=== PATIENT | male | born 1960 | race Caucasian/White ===

== ENCOUNTER 2018-02-03 21:30 | Inpatient (IN) ==
[2018-02-03 23:33] LABS: Basophils # 0.1 10*3/uL (0.0-0.2); Basophils % 0.5 % (0.0-0.8); Eosinophils # 0.1 10*3/uL (0.0-0.87); Eosinophils % 0.5 % (0.00-10.9); Hematocrit 44.9 VOL% (42.0-52.0); Hemoglobin 16.2 GM/DL (14.0-18.0); Immature Granulocytes % 0.6 %; Immature Granulocytes Absolute 0.08 #; Lymphocytes # 1.3 10*3/uL (1.4-4.0); Lymphocytes % 9.8 % (21.2-54.2); Mean Corpuscular HGB Conc 36.1 GM/DL (32-36); Mean Corpuscular Hemoglobin 33 PG (27-34); Mean Corpuscular Volume 90.2 FL (87-102); Mean Platelet Volume 10.1 FL (9.6-12.0); Monocytes # 1.8 10*3/uL (0.11-0.8); Monocytes % 14.1 % (1.7-12.7); Neutrophils # 9.7 10*3/uL (1.4-7.4); Neutrophils % 74.5 % (38.7-73.9); Platelet Count 319 T/CUMM (130-400); Red Blood Count 4.98 MC/CUMM (3.8-5.5); Red Cell Distribution Width 12.5 % (9.3-17.3)
[2018-02-03 23:56] LABS: Lactic Acid 1.8 MMOL/L (0.4-2.0)
[2018-02-03] MEDS ORDERED: ONDANSETRON 4 MG/2 ML VIAL IV STA (23:57)
[2018-02-03] MEDS ORDERED: MORPHINE 4 MG/1 ML VIAL IV STA (23:57)
[2018-02-03 23:58] LABS: Bilirubin,Total 1.1 MG/DL (0.2-1.0); Calcium 9.6 MG/DL (8.5-10.1); Osmolality,Calculated 271.5 MOS/KG (273-304); Potassium 3.1 MMOL/L (3.5-5.1); Total Protein 7.6 G/DL (6.4-8.3)
[2018-02-04] MEDS ORDERED: ONDANSETRON 4 MG/2 ML VIAL IV PRN ×2 (00:16→12:02)
[2018-02-04] MEDS ORDERED: MORPHINE 4 MG/1 ML VIAL IV PRN (00:21)
[2018-02-04 00:52] LABS: Apearance,Urine CLEAR (Clear); Bilirubin,Urine Negative (Negative); Blood, Urine Small mg/dL (Negative); Glucose,Urine (UA) Negative (Negative); Hyaline Casts,Urine 15 /LPF (0-3); Ketones,Urine 5 mg/dL (Negative); Mucus,Urine Few /LPF (Occasional); Nitrite,Urine Negative (Negative); Protein,Urine 30 MG/DL; RBC,Urine 2 /HPF (0-4); Urine Color Yellow (Yellow); Urine Urobilinogen < 2.0 EU/DL (0.2-1.0); WBC,Urine 1 /HPF (0-6)
[2018-02-04] MEDS: DEXTROSE 5% LACTATED RINGERS 1,000 ML IV SCH ×4 (02:54→18:35)
[2018-02-04] MEDS: POTASSIUM CHLORIDE RIDER 10 MEQ in PREMIX 1 EACH IV SCH ×5 (08:25→16:52)
[2018-02-04] MEDS: ENOXAPARIN 40 MG/0.4 ML SYRINGE SUBCUT SCH (08:38)
[2018-02-04] MEDS ORDERED: ALBUTEROL 2.5 MG/3 ML NEB RESP TX ONE (08:47)
[2018-02-04] MEDS ORDERED: IPRATROPIUM 500 MCG/2.5 ML NEB RESP TX ONE (08:47)
[2018-02-04] MEDS ORDERED: HEPARIN 5,000 UNIT/1 ML VIAL ONE (08:54)
[2018-02-04] MEDS ORDERED: TISSUE ADHESIVE 1 EACH APPLICATOR TOP ONE (08:54)
[2018-02-04] MEDS ORDERED: LIDOCAINE 1%/EPI INJ 20 ML VIAL ONE (08:55)
[2018-02-04] MEDS ORDERED: BUPIVACAINE MPF 0.25% /EPI 30 ML VIAL ONE (08:55)
[2018-02-04] MEDS ORDERED: ceFAZolin 1,000 MG VIAL ONE (09:49)
[2018-02-04] MEDS ORDERED: PROPOFOL 200 MG/20 ML VIAL IV ONE (11:49)
[2018-02-04] MEDS ORDERED: fentaNYL 100 MCG/2 ML VIAL ONE (11:49)
[2018-02-04] MEDS ORDERED: SEVOFLURANE 1 UNIT/15 MINUTE INH ONE (11:49)
[2018-02-04] MEDS ORDERED: DEXAMETHASONE 10 MG/1 ML VIAL ONE (11:49)
[2018-02-04] MEDS ORDERED: KETOROLAC 30 MG/1 ML VIAL ONE (11:49)
[2018-02-04] MEDS ORDERED: ONDANSETRON 4 MG/2 ML VIAL ONE (11:49)
[2018-02-04] MEDS ORDERED: MIDAZOLAM 2 MG/2 ML VIAL ONE (11:49)
[2018-02-04] MEDS ORDERED: PHENYLEPHRINE 1 MG/10 ML SYRINGE IV ONE (11:50)
[2018-02-04] MEDS ORDERED: NEOSTIGMINE 10 MG/10 ML VIAL ONE (11:50)
[2018-02-04] MEDS ORDERED: SUCCINYLCHOLINE 200 MG/10 ML VIAL ONE (11:50)
[2018-02-04] MEDS ORDERED: ACETAMINOPHEN 1,000 MG/100 ML VIAL IV ONE (11:50)
[2018-02-04] MEDS ORDERED: ROCURONIUM 100 MG/10 ML VIAL IV ONE (11:50)
[2018-02-04] MEDS ORDERED: LACTATED RINGERS 2,000 ML IV ONE (11:50)
[2018-02-04] MEDS ORDERED: GLYCOPYRROLATE 0.4 MG/2 ML VIAL ONE (11:50)
[2018-02-04] MEDS ORDERED: ETOMIDATE 40 MG/20 ML VIAL IV ONE (11:50)
[2018-02-04] MEDS ORDERED: MORPHINE 10 MG/1 ML VIAL IV PRN (12:02)
[2018-02-04] MEDS: IPRATROPIUM 500 MCG/2.5 ML NEB RESP TX SCH ×2 (14:45→21:39)
[2018-02-04] MEDS: ALBUTEROL 2.5 MG/3 ML NEB RESP TX SCH ×2 (14:45→21:39)
[2018-02-04] MEDS ORDERED: LACTATED RINGERS 1,000 ML IV ONE (16:11)
[2018-02-04] MEDS: PANTOPRAZOLE 40 MG VIAL IV SCH (16:51)
[2018-02-04 19:02] LABS: Basophils % 0.4 % (0.0-0.8); Immature Granulocytes % 0.7 %; Immature Granulocytes Absolute 0.07 #; Lymphocytes # 0.2 10*3/uL (1.4-4.0); Mean Corpuscular HGB Conc 35.1 GM/DL (32-36); Mean Corpuscular Hemoglobin 32 PG (27-34); Mean Corpuscular Volume 92.3 FL (87-102); Mean Platelet Volume 9.6 FL (9.6-12.0); Monocytes # 0.6 10*3/uL (0.11-0.8); Monocytes % 6.4 % (1.7-12.7); Neutrophils # 9.1 10*3/uL (1.4-7.4); Neutrophils % 90.5 % (38.7-73.9); Platelet Count 195 T/CUMM (130-400); Red Blood Count 4.01 MC/CUMM (3.8-5.5); Red Cell Distribution Width 12.6 % (9.3-17.3)
[2018-02-04 19:10] LABS: Albumin 2.8 G/DL (3.4-5.0); Bilirubin,Total 0.8 MG/DL (0.2-1.0); Calcium 8.4 MG/DL (8.5-10.1); Osmolality,Calculated 272.2 MOS/KG (273-304); Potassium 4.3 MMOL/L (3.5-5.1); Total Protein 5.4 G/DL (6.4-8.3)
[2018-02-04 19:11] LABS: CKMB % 1.5 %; Troponin I Only < 0.015 NG/ML (0.00-0.045)
[2018-02-04] MEDS: GABAPENTIN 300 MG CAPSULE PO SCH (20:33)
[2018-02-04 20:39] LABS: Band Neutrophils 10 % (0-10); Lymphocytes 4 % (20-55); Platelet Estimate Normal; Segmented Neutrophils 84 % (50-85); Total Cells Counted 100
[2018-02-05] MEDS: ALBUTEROL 2.5 MG/3 ML NEB RESP TX SCH ×3 (01:30→20:57)
[2018-02-05] MEDS: DEXTROSE 5% LACTATED RINGERS 1,000 ML IV SCH ×3 (02:33→23:01)
[2018-02-05 04:15] LABS: Basophils % 0.2 % (0.0-0.8); Hematocrit 33.7 VOL% (42.0-52.0); Hemoglobin 11.2 GM/DL (14.0-18.0); Immature Granulocytes % 0.5 %; Immature Granulocytes Absolute 0.05 #; Lymphocytes # 0.3 10*3/uL (1.4-4.0); Lymphocytes % 3.6 % (21.2-54.2); Mean Corpuscular HGB Conc 33.2 GM/DL (32-36); Mean Corpuscular Hemoglobin 32 PG (27-34); Mean Corpuscular Volume 95.2 FL (87-102); Monocytes # 1.1 10*3/uL (0.11-0.8); Monocytes % 11.9 % (1.7-12.7); Neutrophils % 83.8 % (38.7-73.9); Platelet Count 182 T/CUMM (130-400); Red Blood Count 3.54 MC/CUMM (3.8-5.5); Red Cell Distribution Width 12.5 % (9.3-17.3); White Blood Count 9.5 T/CUMM (4-12)
[2018-02-05 04:57] LABS: Hypochromasia Slight; Lymphocytes 3 % (20-55); Platelet Estimate Adequate; Segmented Neutrophils 88 % (50-85); Total Cells Counted 100
[2018-02-05 05:50] LABS: Calcium 8.1 MG/DL (8.5-10.1); Osmolality,Calculated 271.1 MOS/KG (273-304); Potassium 3.3 MMOL/L (3.5-5.1)
[2018-02-05] MEDS: IPRATROPIUM 500 MCG/2.5 ML NEB RESP TX SCH ×4 (07:00→19:30)
[2018-02-05] MEDS: POTASSIUM CHLORIDE 8 MEQ CAPSULE PO SCH (08:08)
[2018-02-05] MEDS: PANTOPRAZOLE 40 MG VIAL IV SCH (08:08)
[2018-02-05] MEDS: ENOXAPARIN 40 MG/0.4 ML SYRINGE SUBCUT SCH (08:08)
[2018-02-05] MEDS: GABAPENTIN 300 MG CAPSULE PO SCH ×2 (08:08→20:08)
[2018-02-06] MEDS: ALBUTEROL 2.5 MG/3 ML NEB RESP TX SCH ×3 (00:34→12:35)
[2018-02-06] MEDS: DEXTROSE 5% LACTATED RINGERS 1,000 ML IV SCH (01:46)
[2018-02-06 04:35] LABS: Basophils % 0.4 % (0.0-0.8); Eosinophils # 0.1 10*3/uL (0.0-0.87); Eosinophils % 1.4 % (0.00-10.9); Hematocrit 30.9 VOL% (42.0-52.0); Hemoglobin 10.7 GM/DL (14.0-18.0); Immature Granulocytes % 0.6 %; Immature Granulocytes Absolute 0.04 #; Lymphocytes # 0.8 10*3/uL (1.4-4.0); Lymphocytes % 11.1 % (21.2-54.2); Mean Corpuscular HGB Conc 34.6 GM/DL (32-36); Mean Corpuscular Hemoglobin 33 PG (27-34); Mean Corpuscular Volume 93.9 FL (87-102); Mean Platelet Volume 9.9 FL (9.6-12.0); Monocytes # 0.9 10*3/uL (0.11-0.8); Neutrophils # 5.3 10*3/uL (1.4-7.4); Neutrophils % 74.5 % (38.7-73.9); Platelet Count 166 T/CUMM (130-400); Red Blood Count 3.29 MC/CUMM (3.8-5.5); Red Cell Distribution Width 12.8 % (9.3-17.3); White Blood Count 7.1 T/CUMM (4-12)
[2018-02-06 04:59] LABS: Calcium 8.3 MG/DL (8.5-10.1); Osmolality,Calculated 278.3 MOS/KG (273-304); Potassium 3.5 MMOL/L (3.5-5.1)
[2018-02-06] MEDS: IPRATROPIUM 500 MCG/2.5 ML NEB RESP TX SCH ×3 (07:22→14:47)
[2018-02-06] MEDS: ENOXAPARIN 40 MG/0.4 ML SYRINGE SUBCUT SCH (08:38)
[2018-02-06] MEDS: PANTOPRAZOLE 40 MG VIAL IV SCH (10:02)
[2018-02-06] MEDS: POTASSIUM CHLORIDE 8 MEQ CAPSULE PO SCH (10:02)
[2018-02-06] MEDS: GABAPENTIN 300 MG CAPSULE PO SCH (10:02)
[2018-02-06 12:09] LABS: Hematocrit 32.1 VOL% (42.0-52.0); Hemoglobin 10.8 GM/DL (14.0-18.0)
[2018-02-06 15:15] VITALS: BP 122/79
== END 2018-02-06 17:30 | disposition home health service (06) | DRG 221 ==
LOC: N.ED 21:30 → N.EDINP 02-04 00:16 → N.3E 02-04 01:55 → N.ICU 02-04 18:22
PROVIDERS: ADMIT Surgery; ATTEND Surgery